=== PATIENT | male | born 1955 | race Caucasian/White ===

== ENCOUNTER 2017-03-08 05:54 | Day surgery (SDC) | payer BC ==
[~2017-03-08] VITALS: Ht 172.7 cm; Wt 95.0 kg
[2017-03-08 07:01] VITALS: Ht 172.7 cm; Wt 95.0 kg
[2017-03-08] MEDS ORDERED: LOSA1TAB19 PO (07:11)
[2017-03-08] MEDS ORDERED: METO-448 PO (07:11)
[2017-03-08] MEDS ORDERED: PANT40TA4 PO (07:11)
[2017-03-08] MEDS ORDERED: ROSU5TAB5 PO (07:11)
[2017-03-08] MEDS ORDERED: ASPI81TA3 PO (07:11)
[2017-03-08 07:36] VITALS: BP 131/71; PULSE 67; RESP 16
[2017-03-08] MEDS ORDERED: MIDAZOLAM 1 MG/ML 2 ML INJ ONE (07:36)
[2017-03-08] MEDS ORDERED: FENTAnyl 50 MCG/ML VIAL ONE (07:36)
[2017-03-08 08:55] VITALS: BP 110/69; PULSE 85; RESP 18
--- NOTE | 2017-03-08 10:46 | GILP ---
DATE OF PROCEDURE: 03/08/2017 NAME OF PROCEDURES: 1. Esophagogastroduodenoscopy and biopsy. 2. Colonoscopy. SURGEON: Tierney Blake MD PREOPERATIVE DIAGNOSIS: Abdominal pain. POSTOPERATIVE DIAGNOSES 1. Reflux esophagitis with ulcers at the lower end of the esophagus. 2. Gastritis with erosions. 3. Gastric mucosal biopsies were taken for Helicobacter pylori test. 4. Colonoscopy all the way to the cecum. 5. Occasional diverticulosis of the colon. 6. Internal hemorrhoids. 7. No colon neoplasm was identified. INDICATION FOR THE PROCEDURE: Mr. Dileep Reid is a 61-year-old male patient who had upper abdomina l pain, not responding to therapy. The patient also needed screening colonoscopy. The procedures and possible complications were well explained to the patient, he understood and cons ented to the procedure. DESCRIPTION OF PROCEDURE: Under the influence of anesthesia, the gastroscope was carefully introduc ed into the esophagus and under direct vision, it was advanced to the stomach and through the pyloru s into the duodenal bulb and descending duodenum. FINDINGS: ESOPHAGUS: The patient had ulcers at the lower end of the esophagus. STOMACH: He had gastritis with erosions. Gastric mucosal biopsies were taken for H. pylori test. DUODENUM: Normal. The colonoscope was carefully introduced in the rectum and under direct vision, it was advanced all the way to the cecum. FINDINGS: The patient had internal hemorrhoids. He also had occasional diverticulosis of the colon . No colon neoplasm was identified. The patient tolerated the procedures very well and there was no complication from the procedures. A t the end of the procedures, he was awake with stable vital signs and he was discharged home to the care of his family. IMPRESSION: Please see postoperative diagnosis. PLAN: 1. Nexium 24 hours p.o. q.a.m. 2. Zantac 300 mg p.o. at bedtime. 3. Await H. pylori test report. 4. Screening colonoscopy in 10 years. Dictated By: TIERNEY CROW/MAHNAZ Conf#: [id number] DID#: [id number] CC: TIERNEY BLAKE MD;*EndCC*
== END 2017-03-08 09:40 | disposition home or self-care (01) ==
LOC: GIL 05:54
PROVIDERS: ATTEND Internal Medicine Gastroenterology
DX: Z12.11 Encounter for screening for malignant neoplasm of colon (principal); K21.0 Gastro-esophageal reflux disease with esophagitis; K29.60 Other gastritis without bleeding; K57.90 Diverticulosis of intestine, part unspecified, without perforation or abscess without bleeding; K64.8 Other hemorrhoids; I10 Essential (primary) hypertension
CPT/HCPCS: 43239; 45378; 87081; J2250; J3010; Z7610

== ENCOUNTER 2019-07-31 09:28 | Day surgery (SDC) | payer BC ==
[2019-07-31] VITALS (23 sets, daily range): BP systolic 116–156; BP diastolic 70–93; PULSE 52–76; RESP 12–21; Ht 172.7 cm; Wt 96.3 kg
[~2019-07-31] VITALS: Ht 172.7 cm; Wt 96.3 kg
[~2019-07-31 09:28] MED LIST: ASPI-903 PO; ASPI81TA52 PO; ATOR20TA38 PO; CEFAZOLIN 2 GM/50 ML (PMX) 50 ML IVPB ONE; CHOL500010 PO; CRES5 PO; CYAN100T PO; LOSA1TAB22 PO; METO-336 PO; METO-448 PO; OLME5TAB4 PO; PANT40TA3 PO; PANT40TA4 PO; SOD CHLORIDE 0.9% 1,000 ML IV SCH
[2019-07-31] MEDS ORDERED: POLYMYXIN/BACITRACIN 1L IRRIG ONE (13:09)
[2019-07-31] MEDS ORDERED: BUPIVACAINE 0.25% (MPF) 30 ML INJ ONE (13:09)
[2019-07-31] MEDS ORDERED: HYDROmorphONE 2 MG/ML SYG ONE (13:53)
[2019-07-31] MEDS ORDERED: LIDOCAINE 1% (MDV) 20 ML INJ ONE (13:53)
[2019-07-31] MEDS ORDERED: ROCURONIUM 50 MG INJ ONE (13:53)
[2019-07-31] MEDS ORDERED: MIDAZOLAM 1 MG/ML 2 ML INJ ONE (13:53)
[2019-07-31] MEDS ORDERED: PROPOFOL 20 ML ONE (13:53)
[2019-07-31] MEDS ORDERED: hydrALAzine 20 MG INJ IV PRN (14:00)
[2019-07-31] MEDS ORDERED: LABETALOL HCL 20MG INJ IV PRN (14:00)
[2019-07-31] MEDS ORDERED: ONDANSETRON 4 MG INJ IV PRN (14:00)
[2019-07-31] MEDS ORDERED: HYDROmorphONE 1 MG/5 ML IV SYRINGE IV PRN ×2 (14:00)
[2019-07-31] MEDS ORDERED: OXYCODONE/ACETAMINOPHEN (5/325) TAB PO PRN ×2 (14:00)
[2019-07-31] MEDS ORDERED: ROPIVACAINE 0.5 % 30 ML VIAL ONE (14:06)
[2019-07-31] MEDS ORDERED: ONDANSETRON 4 MG INJ ONE (14:15)
[2019-07-31] MEDS ORDERED: CEFAZOLIN 1 GM INJ ONE (14:15)
[2019-07-31] MEDS ORDERED: SUGAMMADEX SODIUM 200 MG/2 ML VIAL IV ONE (14:46)
[2019-07-31] MEDS ORDERED: HYDROCODONE/APAP (5/325) TAB PO ONE (16:00)
[2019-07-31] MEDS: HYDROmorphONE 1 MG/5 ML IV SYRINGE IV PRN ×3 (16:06→16:17)
== END 2019-07-31 18:14 | disposition home or self-care (01) ==
LOC: SDS 09:28
PROVIDERS: ATTEND Surgery
DX: K43.9 Ventral hernia without obstruction or gangrene (principal); I10 Essential (primary) hypertension; E78.5 Hyperlipidemia, unspecified; I25.10 Atherosclerotic heart disease of native coronary artery without angina pectoris; E11.9 Type 2 diabetes mellitus without complications
CPT/HCPCS: C1781; J0690; J1170; J2250; J2405; J2795